=== PATIENT | female | born 2000 | race Hispanic/Latino ===

== ENCOUNTER 2020-11-15 13:51 | Emergency (ER) | payer OTHER, SELFPAY ==
[2020-11-15] VITALS (11 sets, daily range): BP systolic 108–121; BP diastolic 56–66; PULSE 73–90; RESP 15–25; TEMP 36.9; O2SAT 72–100; BMI 25.7
[2020-11-15 15:05] LABS: COVID19 -Nasal RAPID Negative (Negative)
[2020-11-15 16:38] LABS: Add Manual Diff / Slide Review NO; Basophils Absolute Auto 0 /uL (0-100); Basophils Percent Auto 0.3 % (0-2); Eosinophils Absolute Auto 0 /uL (0-450); Eosinophils Percent Auto 0.5 % (2-4); Hematocrit 39.5 % (36-46); Hemoglobin 13.8 g/dL (12.0-16.0); Lymphocytes Absolute Auto 2000 /uL (1100-4500); Lymphocytes Percent Auto 20.8 % (25-40); Mean Corpuscular HGB Conc 34.9 % (30-36); Mean Corpuscular Hemoglobin 29.3 PG (26-34); Mean Corpuscular Volume 83.9 fL (80-100); Monocytes Absolute Auto 400 /uL (0-900); Monocytes Percent Auto 4.2 % (3-14); Neutrophils Absolute Auto 7000 /uL (1500-7000); Neutrophils Percent Auto 74.2 % (50-75); Platelet Count 251 X10^3/uL (150-400); Red Blood Cell Count 4.71 X10^6/uL (4.0-5.2); Red Cell Distribution Width 12.9 % (11.6-14.8); White Blood Cell Count 9.4 X10^3/uL (4.5-11.0)
[2020-11-15 16:46] LABS: Alanine Aminotransferase 13 IU/L (<35); Albumin 4.6 g/dL (3.5-5.0); Albumin Globulin Ratio 1.2 (1.0-2.8); Alkaline Phosphatase 47 U/L (38-126); Aspartate Aminotransferase 19 IU/L (14-36); BUN Creatinine Ratio 28.8 (6-22); Bilirubin Total 0.4 mg/dL (0.2-1.3); Blood Urea Nitrogen 15 mg/dL (7-17); Calcium 9.4 mg/dL (8.4-10.2); Carbon Dioxide 27 mmol/L (22-32); Chloride 104 mmol/L (98-107); Estimated Glomerular Filt Rate > 60.0 mL/min (>60); Globulin 3.7 g/dL (1.7-4.1); Glucose 111 mg/dL (70-100); HEMOLYSIS < 15 (0-50); Lipase 48 U/L (23-300); Potassium 3.8 mmol/L (3.4-5.1); Sodium 137 mmol/L (137-145); Total Protein 8.3 g/dL (6.3-8.2)
[2020-11-15] MEDS: SODIUM CHLORIDE 0.9% 1,000 ML 150 ML IV (16:59)
--- NOTE | 2020-11-15 17:02 | ED_ITS ---
HPI - Abdominal Pain General Chief Complaint: Abdominal Pain Stated Complaint: anxiety,stomach pain,difficulty breathing,headache Time Seen by Provider: 11/15/20 16:09 Source: patient Mode of arrival: Ambulatory Limitations: no limitations History of Present Illness HPI narrative: 19-year-old female nonsmoker with noncontributory medical history presents with variety of symptoms that started this morning upon waking. She's had a vague headache which seems to be worse with bright lights and loud noise. She denies blurred vision, trouible with speech, or other focal neurologic findings such as numbness, tingling or weakness. Additionally she has felt a bit nauseated in the absence of any vomiting. She has had no runny nose, sore throat, cough, chest pain. She mentioned earlier difficulty breathing but sta donnie that it was more when she felt anxious when she was trying to not vomit. She denies any exposure to persons known to have COVID. She denies any constipation or diarrhea. She denies dysuria, frequency or urgency. She denies any change in her medications or diet. MD complaint: other Onset (ago): hour(s) Associated symptoms: nausea Related Data Home Medications Medication Instructions Recorded Confirmed ascorbic acid (vitamin C) 250 mg 250 mg PO DAILY 10/11/20 10/11/20 chewable tablet bimatoprost 0.03 % drops with 1 applic TOPICAL BEDTIME 10/11/20 10/11/20 applicator, eyelash base vitamin#30 30 mg iron-10 cap PO 10/11/20 10/11/20 mg iron-folic acid 1 mg-omg3 capsule Allergies Allergy/AdvReac Type Severity Reaction Status Date / Time bee venom protein (honey bee) Allergy Severe Hives/throat Verified 11/15/20 14:27 swelling Review of Systems Constitutional Constitutional: Denies chills, Denies fatigue, Denies fever(s), Denies frequent falls, Denies lethargy, Reports poor appetite and Reports weakness Eyes Eyes: Denies change in vision, Denies eye discharge, Denies irritation and Denies loss of vision ENT Ears, Nose, Mouth, and Throat: Denies change in voice, Denies dizziness, Denies neck pain, Denies sore throat and Denies throat swelling Cardiovascular Cardiovascular: Denies chest pain, Denies irregular heart rhythm, Denies lightheadedness, Denies palpitations, Reports dyspnea, Denies dyspnea on exertion and Denies orthopnea Respiratory Respiratory: Denies cough, Reports dyspnea, Denies dyspnea on exertion and Denies wheezing Gastrointestinal Gastrointestinal: Denies abdominal pain, Denies change in bowel habits, Denies diarrhea, Reports nausea and Denies vomiting Musculoskeletal Musculoskeletal: Denies neck pain and Denies numbness Integumentary/Breasts Skin/Breast: Denies pruritus, Denies erythema, Denies rash and Denies wounds Neurologic Neurologic: Denies behavioral changes, Denies confusion, Denies dizziness, Denies frequent falls, Denies loss of vision, Denies numbness and Reports weakness Psychiatric Psychiatric: Reports anxiety, Denies behavioral changes, Denies confusion, Denies depression, Denies homicidal ideation and Denies suicidal ideation Endocrine Endocrine: Denies fatigue, Denies flushing and Denies palpitations Hematologic/Lymphatic Hematologic/Lymphatic: Denies easy bruising Allergic/Immunologic Allergic/Immunologic: Denies urticaria, Denies throat swelling and Denies wheezing Patient History Social History Smoking Status: Never smoker Smoking Status: Never smoker alcohol intake frequency: other Substance Use Type: does not use Exam Narrative Exam Narrative: GENERAL: [19] year old patient appears stated age. Well- nourished, well-developed patient, in mild distress. Very anxious HEAD: Atraumatic. Normocephalic. EYES: Pupils equal round and reactive. Extraocular motions intact. No scleral icterus. No injection or drainage. ENT: Nose without bleeding, purulent drainage. Throat without erythema, tonsillar hypertrophy or exudate. Airway patent. NECK: Trachea midline. Non tender CARDIOVASCULAR: Regular rate and rhythm without murmurs, gallops, or rubs. RESPIRATORY: Clear to auscultation. Breath sounds equal bilaterally. No wheezes, rales, or rhonchi. GASTROINTESTINAL: Abdomen soft, non-tender, nondistended. EXTREMITIES: No edema or joint tenderness. BACK: Nontender without deformity or crepitance. No flank tenderness. NEURO: AOx3. SKIN: No rash or erythema of visible areas Initial Vital Signs Initial Vital Signs: Vital Signs Temperature 98.4 F 11/15/20 14:27 Pulse Rate 79 11/15/20 14:27 Respiratory Rate 16 11/15/20 14:27 Blood Pressure 121/66 11/15/20 14:27 Pulse Oximetry 100 11/15/20 14:27 Course Orders Ordered: Discontinued Medications Sodium Chloride (Normal Saline 0.9%) 1,000 mls @ 150 mls/hr IV CONT KEENAN Last Infusion: 11/15/20 19:35 Dose: 0 mls/hr Documented by: Infusion: 11/15/20 18:41 Dose: 1,000 mls/hr Documented by: Admin: 11/15/20 16:59 Dose: 150 mls/hr Documented by: GADIEL Ketorolac Tromethamine (Ketorolac 60 Mg/2 Ml Vial) 15 mg IV NOW ONE Stop: 11/15/20 18:21 Last Admin: 11/15/20 18:30 Dose: 15 mg Documented by: GADIEL Metoclopramide HCl (Metoclopramide 10 Mg/2 Ml Inj) 10 mg IV NOW ONE Stop: 11/15/20 18:21 Last Admin: 11/15/20 18:29 Dose: 10 mg Documented by: GADIEL Vital Signs Vital signs: Vital Signs - 8 hr 11/15/20 19:59 Pulse Rate 83 Respiratory Rate 16 Blood Pressure 117/58 L Pulse Oximetry 98 MDM - Abdominal Pain Lab Data Result diagrams: 11/15/20 16:23 11/15/20 16:23 Labs: Lab Results 11/15/20 11/15/20 11/15/20 Range/Units 14:38 16:23 16:23 WBC 9.4 (4.5-11.0) X10^3/uL RBC 4.71 (4.0-5.2) X10^6/uL Hgb 13.8 (12.0-16.0) g/dL Hct 39.5 (36-46) % MCV 83.9 (80-100) fL MCH 29.3 (26-34) PG MCHC 34.9 (30-36) % RDW 12.9 (11.6-14.8) % Plt Count 251 (150-400) X10^3/uL Neut % (Auto) 74.2 (50-75) % Lymph % (Auto) 20.8 L (25-40) % [place] % (Auto) 4.2 (3-14) % Eos % (Auto) 0.5 L (2-4) % Baso % (Auto) 0.3 (0-2) % Neut # (Auto) 7000 (3648-9264) /uL Lymph # (Auto) 2000 (8291-7366) /uL [place] # (Auto) 400 (0-900) /uL Eos # (Auto) 0 (0-450) /uL Baso # (Auto) 0 (0-100) /uL Sodium 137 (137-145) mmol/L Potassium 3.8 (3.4-5.1) mmol/L Chloride 104 (98-107) mmol/L Carbon Dioxide 27 (22-32) mmol/L BUN 15 (7-17) mg/dL Creatinine 0.52 (0.52-1.04) mg/dL Estimated GFR > 60.0 (>60) mL/min BUN/Creatinine Ratio 28.8 H (6-22) Glucose 111 H (70-100) mg/dL Calcium 9.4 (8.4-10.2) mg/dL Total Bilirubin 0.4 (0.2-1.3) mg/dL AST 19 (14-36) IU/L ALT 13 (<35) IU/L Alkaline Phosphatase 47 (38-126) U/L Total Protein 8.3 H (6.3-8.2) g/dL Albumin 4.6 (3.5-5.0) g/dL Globulin 3.7 (1.7-4.1) g/dL Albumin/Globulin Ratio 1.2 (1.0-2.8) Lipase 48 (23-300) U/L COVID-19 PCR Negative (Negative) Point of care testing: Point of Care Testing Test Results Negative Urine Dip Bedside Urine Glucose Negative Bedside Urine Bilirubin - Negative Bedside Urine Ketone - Negative Urine Specific [place] 1.015 Bedside Urine Occult Blood - Negative Bedside Urine pH 8.5 Bedside Urine Protein - Negative Bedside Urine Urobilinogen - Negative Bedside Urine Nitrite - Negative Bedside Urine Leukocytes - Negative Esterase Discharge Plan Departure Patient Disposition: Home Clinical Impression: Headache Qualifiers: Headache type: unspecified Headache chronicity pattern: acute headache Intractability: not intractable Qualified Code(s): R51.9 - Headache, unspecified Instructions: DI for Headache Activity Restrictions/Additional Instructions: *You have been diagnosed with [ atypical migraine, very reassuring labs and response to medications ] *What to do: *Take medications as directed *Follow up with your primary care provider in 2-3 days, call for an appointment. Let them know you were seen in the Emergency Department and that we ask that you be seen in follow up *Return to ER if you should have any new, worsening or concerning symptoms Prescriptions: No Action PNV #[id number] 30 mg iron-10 mg iron-1 mg capsule PO RF: 0 bimatoprost [Latisse] 0.03 % drops with applicator 1 applic topical BEDTIME RF: 0 ascorbic acid (vitamin C) 250 mg tablet,chewable 250 mg PO DAILY RF: 0
[2020-11-15] MEDS: METOCLOPRAMIDE 10 MG/2 ML INJ IV (18:29)
[2020-11-15] MEDS: KETOROLAC 60 MG/2 ML VIAL 15 MG IV (18:30)
--- NOTE | 2020-11-15 18:41 | PC.NURSE ---
Fluid rate adjusted to 1000ml/hr per provider Gifford verbal order.
== END 2020-11-15 20:01 | disposition home or self-care (01) ==
PROVIDERS: Emergency Medicine; Emergency Provider Emergency Medicine
DX: R51.9 Headache, unspecified (principal); R10.9 Unspecified abdominal pain; Z20.828 Contact with and (suspected) exposure to other viral communicable diseases
CPT/HCPCS: 36415; 80053; 81003; 81025; 83690; 85025; 87635; 93005; 96361; 96374; 96375; 99283; 99284; J1885; J2765

== ENCOUNTER → 2021-02-07 15:38 | Outpatient (CLI) | payer OTHER, SELFPAY ==
[2021-02-07 16:25] LABS: Add Manual Diff / Slide Review NO; Basophils Absolute Auto 0 /uL (0-100); Basophils Percent Auto 0.4 % (0-2); Eosinophils Absolute Auto 100 /uL (0-450); Eosinophils Percent Auto 1.1 % (2-4); Hematocrit 38.2 % (36-46); Hemoglobin 13.4 g/dL (12.0-16.0); Lymphocytes Absolute Auto 2000 /uL (1100-4500); Lymphocytes Percent Auto 32.4 % (25-40); Mean Corpuscular HGB Conc 34.9 % (30-36); Mean Corpuscular Hemoglobin 29.2 PG (26-34); Mean Corpuscular Volume 83.7 fL (80-100); Monocytes Absolute Auto 300 /uL (0-900); Monocytes Percent Auto 5.6 % (3-14); Neutrophils Absolute Auto 3800 /uL (1500-7000); Neutrophils Percent Auto 60.5 % (50-75); Platelet Count 229 X10^3/uL (150-400); Red Blood Cell Count 4.57 X10^6/uL (4.0-5.2); Red Cell Distribution Width 12.6 % (11.6-14.8); White Blood Cell Count 6.2 X10^3/uL (4.5-11.0)
[2021-02-07 16:45] LABS: Erythrocyte Sedimentation Rate 5 MM/HR (0-20)
[2021-02-07 17:03] LABS: Alanine Aminotransferase 11 IU/L (<35); Albumin 4.6 g/dL (3.5-5.0); Albumin Globulin Ratio 1.6 (1.0-2.8); Alkaline Phosphatase 49 U/L (38-126); Aspartate Aminotransferase 19 IU/L (14-36); BUN Creatinine Ratio 20.6 (6-22); Bilirubin Total 0.3 mg/dL (0.2-1.3); Blood Urea Nitrogen 13 mg/dL (7-17); Calcium 9.9 mg/dL (8.4-10.2); Carbon Dioxide 30 mmol/L (22-32); Chloride 102 mmol/L (98-107); Estimated Glomerular Filt Rate > 60.0 mL/min (>60); Globulin 2.9 g/dL (1.7-4.1); Glucose 89 mg/dL (70-100); HEMOLYSIS < 15 (0-50); Lipase 68 U/L (23-300); Potassium 3.8 mmol/L (3.4-5.1); Sodium 138 mmol/L (137-145); Total Protein 7.5 g/dL (6.3-8.2)
[2021-02-07 17:04] LABS: C-Reactive Protein Quant < 0.5 mg/dL (<1.0)
[2021-02-07 17:49] LABS: Vitamin B12 Reflex MMA if <400 451 pg/mL (239-931)
[2021-02-09 19:18] LABS: ANA Screen, IFA Positive (.)
== END ==
PROVIDERS: PCP Family Medicine; Referring Provider Family Medicine; Visit Provider Family Medicine
DX: R20.2 Paresthesia of skin (principal); R10.12 Left upper quadrant pain; L50.3 Dermatographic urticaria
CPT/HCPCS: 36415; 80053; 82607; 83690; 85025; 85651; 86038; 86140

== ENCOUNTER 2021-02-17 13:10 | Emergency (ER) | payer OTHER, SELFPAY ==
[2021-02-17 13:17] VITALS: BP 126/74; PULSE 69; RESP 14; TEMP 36.7; O2SAT 100; BMI 26.3
--- NOTE | 2021-02-17 15:09 | ED.ABDPAIN ---
HPI - Abdominal Pain <PUNEET Pineda - Last Filed: 02/17/21 19:24> General Chief Complaint: Abdominal Pain Stated Complaint: abdominal pain, sent for a CT Time Seen by Provider: 02/17/21 14:24 Source: patient Mode of arrival: Ambulatory Limitations: no limitations History of Present Illness HPI narrative: This is a 20 year female, nonsmoker, who has past medical history significant for cholecystectomy in December last year presents to ED with chief complain of epigastric, left upper quadrant pain for last month and she relates her pain after eating. Patient reports she follows intermittent fasting for last 3 months for 16 hour period and eat from noon to 6 pm for weight control. Patient reports she had lost more than 100 lb over 1.5 year. Patient reports pain gets severe at times and 2 days ago she almost came in to ED but decided not to come in due to medical insurance issues. She reports she is tired and had enough of this pain. She frequently moans and groan due to pain. Patient describes pain as sharp and squeezing and rates as 5/10 but at this time pain is 1/10. Patient denies known food allergies. Patient eats variety food including vegetables and fruits. Frequently patient has soft BM and after she does bowl movement, pain subsides. She denie fever, chills, urinary symptoms. LMP on 01/28/2021. Patient is referred by [employer]ODUCT OWNER Sharon Agustin for imaging test, PCP Dr. Márquez. Patient initially declined labs or IV start. We had long discussion of complete workup and to get a CT of abdomen and pelvis exam, patient requires IV access for contrast administration and she agrees with blood test and IV access. Related Data Home Medications Medication Instructions Recorded Confirmed ascorbic acid (vitamin C) 250 mg 250 mg PO DAILY 10/11/20 02/07/21 chewable tablet bimatoprost 0.03 % drops with 1 applic TOPICAL BEDTIME 10/11/20 02/07/21 applicator, eyelash base vitamin#30 30 mg iron-10 cap PO 10/11/20 02/07/21 mg iron-folic acid 1 mg-omg3 capsule apple cider vinegar 300 mg tablet mg PO 12/02/20 02/07/21 Allergies Allergy/AdvReac Type Severity Reaction Status Date / Time bee venom protein (honey bee) Allergy Severe Hives/throat Verified 02/17/21 13:23 swelling Review of Systems <PUNEET Pineda - Last Filed: 02/17/21 19:24> Review of Systems Narrative: General: Denies fever, chills, fatigue, malaise, sweats. HEENT: Denies sinus pain, ear pain, sore throat, difficulty swallowing, dizziness. Respiratory: Denies dyspnea, cough, wheezing, hemoptysis, sputum. Cardiovascular: Denies chest pain, palpitations, orthopnea, edema. Gastrointestinal: See HPI : Denies dysuria, frequency, incontinence, hematuria, urinary retention. Musculoskeletal: Denies weakness, joint pain or bony pain. Skin: Denies rash, skin lesions, or other. Neurologic: Denies weakness, headache, numbness, change in speech, confusion, seizures, incoordination. Psychiatric: No concerning psychosocial issues. 12-point review of systems is negative except for those stated above. 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 Head: Normal cephalic, atraumatic. No scalp or temporal tenderness, palpable mass or rash. EYES: Pupils are equal, round, and reactive to light and accommodation. Extraocular muscles are intact bilaterally. There is no subconjunctival hemorrhage, exudate and sclera non-icteric. ENT: Hearing grossly intact. Airway patent. Neck: Trachea in midline. No JVD, non-tender without lymphadenopathy. No masses or thyroid megaly. Supple, non-tender and no meningeal signs. CARDIAC: Normal regular rate and rhythm without murmurs, gallops, or rubs. No chest wall tenderness. No peripheral edema, cyanosis or pallor. Capillary refill is less than 2 seconds. RESPIRATORY: Lungs are clear to auscultate bilaterally. No cough, wheezes, rales, or rhonchi. No stridor, respiratory distress, increase work of breathing, or accessary muscle used. ABD: Abdomen soft and non-distended. No guarding or rebound tenderness to palpate. Tender to palpate in left upper and bilateral abdomen. Bowel sounds are normal in all 4 quadrants. There is no palpable masses or organomegaly. EXT: Full painless ROM of all extremities with no loss of sensation, strength, effusion or edema. SKIN: Warm, dry, normal color for patient. No erythema, lesions or rash over visible areas. BACK: Nontender without deformity or crepitance. No flank tenderness. NEUROLOGICAL: Alert and oriented to place, time and person. Sensation and motor function intact bilaterally. No facial droops, dysphasia. PSYCHIATRIC: Good judgement and reason, without hallucinations. Patient is not suicidal. Initial Vital Signs Initial Vital Signs: Vital Signs Temperature 98.1 F 02/17/21 13:17 Pulse Rate 69 02/17/21 13:17 Respiratory Rate 14 02/17/21 13:17 Blood Pressure 126/74 02/17/21 13:17 Pulse Oximetry 100 02/17/21 13:17 <Obdulia Williamson MD - Last Filed: 02/20/21 05:23> Initial Vital Signs Initial Vital Signs: Vital Signs Temperature 98.1 F 02/17/21 13:17 Pulse Rate 69 02/17/21 13:17 Respiratory Rate 14 02/17/21 13:17 Blood Pressure 126/74 02/17/21 13:17 Pulse Oximetry 100 02/17/21 13:17 Scores <PUNEET Pineda - Last Filed: 02/17/21 19:24> GCS Graham coma scale eye opening: Spontaneous Graham coma scale verbal response: Orientated Graham coma scale motor response: Obey commands [place] coma scale total score: 15 qSOFA Altered Mental Status (GCS <15): No Respiratory rate greater than/equal to 22: No Systolic blood pressure less than or equal to 100: No qSOFA Total: 0 0-1 Not High Risk 1-3 High risk Course <PUNEET Pineda - Last Filed: 02/17/21 19:24> Orders Ordered: Discontinued Medications Acetaminophen (Acetaminophen Susp 650 Mg/20.3 Ml Udc) 650 mg PO NOW ONE Stop: 02/17/21 17:04 Last Admin: 02/17/21 17:19 Dose: 650 mg Documented by: KBROTEM Sodium Chloride (Normal Saline 0.9%) 1,000 mls @ 150 mls/hr IV CONT KEENAN Last Infusion: 02/17/21 17:39 Dose: 0 mls/hr Documented by: Admin: 02/17/21 15:32 Dose: 150 mls/hr Documented by: SHERRILL Pantoprazole Sodium (Pantoprazole 40 Mg Vial) 40 mg IV NOW ONE Stop: 02/17/21 14:56 Last Admin: 02/17/21 15:32 Dose: 40 mg Documented by: SHERRILL Reevaluation(s) Reevaluation #1: Patient reports abdominal pain resolved at this time but has headache likely from crying. Medicating patient with elix Tylenol since patient is not able to tolerate pills. Waiting for CT of abdomen/pelvis results Time: 17:05 Vital Signs Vital signs: Vital Signs - 8 hr 02/17/21 13:17 02/17/21 16:19 02/17/21 16:34 Temperature 98.1 F Pulse Rate 69 86 91 H Respiratory Rate 14 Blood Pressure 126/74 Pulse Oximetry 100 100 100 02/17/21 17:00 02/17/21 17:39 Temperature Pulse Rate 80 87 Respiratory Rate Blood Pressure 106/59 L Pulse Oximetry 97 98 <Obdulia Williamson MD - Last Filed: 02/20/21 05:23> Orders Ordered: Discontinued Medications Acetaminophen (Acetaminophen Susp 650 Mg/20.3 Ml Udc) 650 mg PO NOW ONE Stop: 02/17/21 17:04 Last Admin: 02/17/21 17:19 Dose: 650 mg Documented by: KBROTEM Sodium Chloride (Normal Saline 0.9%) 1,000 mls @ 150 mls/hr IV CONT KEENAN Last Infusion: 02/17/21 17:39 Dose: 0 mls/hr Documented by: Admin: 02/17/21 15:32 Dose: 150 mls/hr Documented by: SHERRILL Pantoprazole Sodium (Pantoprazole 40 Mg Vial) 40 mg IV NOW ONE Stop: 02/17/21 14:56 Last Admin: 02/17/21 15:32 Dose: 40 mg Documented by: SHERRILL Vital Signs Vital signs: Vital Signs - 8 hr 02/17/21 13:17 02/17/21 16:19 02/17/21 16:34 Temperature 98.1 F Pulse Rate 69 86 91 H Respiratory Rate 14 Blood Pressure 126/74 Pulse Oximetry 100 100 100 02/17/21 17:00 02/17/21 17:39 Temperature Pulse Rate 80 87 Respiratory Rate Blood Pressure 106/59 L Pulse Oximetry 97 98 MDM - Abdominal Pain <Silvano PUNEET [place] - Last Filed: 02/17/21 19:24> Differential Diagnosis Differential diagnosis: Likely other (common bile duct stone, Gastritis, gastric ulcer, IBS) Medical Records Attestation: I reviewed the patient's medical records. Lab Data Attestation: I reviewed the patient's lab results. Result diagrams: 02/17/21 15:10 02/17/21 15:10 Labs: Lab Results 02/17/21 02/17/21 02/17/21 Range/Units 15:10 15:10 15:10 WBC 7.8 (4.5-11.0) X10^3/uL RBC 4.90 (4.0-5.2) X10^6/uL Hgb 14.3 (12.0-16.0) g/dL Hct 41.4 (36-46) % MCV 84.5 (80-100) fL MCH 29.2 (26-34) PG MCHC 34.5 (30-36) % RDW 13.0 (11.6-14.8) % Plt Count 200 (150-400) X10^3/uL Neut % (Auto) 64.7 (50-75) % Lymph % (Auto) 29.9 (25-40) % Citrus % (Auto) 4.3 (3-14) % Eos % (Auto) 0.7 L (2-4) % Baso % (Auto) 0.4 (0-2) % Neut # (Auto) 5000 (8082-5564) /uL Lymph # (Auto) 2300 (4318-5667) /uL Citrus # (Auto) 300 (0-900) /uL Eos # (Auto) 100 (0-450) /uL Baso # (Auto) 0 (0-100) /uL Sodium 140 (137-145) mmol/L Potassium 4.0 (3.4-5.1) mmol/L Chloride 105 (98-107) mmol/L Carbon Dioxide 26 (22-32) mmol/L BUN 16 (7-17) mg/dL Creatinine 0.51 L (0.52-1.04) mg/dL Estimated GFR > 60.0 (>60) mL/min BUN/Creatinine Ratio 31.4 H (6-22) Glucose 86 (70-100) mg/dL Lactate 1.0 (0.7-2.1) mmol/L Calcium 9.9 (8.4-10.2) mg/dL Magnesium (1.6-2.3) mg/dL Total Bilirubin 0.5 (0.2-1.3) mg/dL AST 27 (14-36) IU/L ALT 13 (<35) IU/L Alkaline Phosphatase 43 (38-126) U/L Total Protein 7.8 (6.3-8.2) g/dL Albumin 4.6 (3.5-5.0) g/dL Globulin 3.2 (1.7-4.1) g/dL Albumin/Globulin Ratio 1.4 (1.0-2.8) Lipase 56 (23-300) U/L 03/25/21 Range/Units 15:10 WBC (4.5-11.0) X10^3/uL RBC (4.0-5.2) X10^6/uL Hgb (12.0-16.0) g/dL Hct (36-46) % MCV (80-100) fL MCH (26-34) PG MCHC (30-36) % RDW (11.6-14.8) % Plt Count (150-400) X10^3/uL Neut % (Auto) (50-75) % Lymph % (Auto) (25-40) % Citrus % (Auto) (3-14) % Eos % (Auto) (2-4) % Baso % (Auto) (0-2) % Neut # (Auto) (8482-3472) /uL Lymph # (Auto) (7138-7450) /uL Citrus # (Auto) (0-900) /uL Eos # (Auto) (0-450) /uL Baso # (Auto) (0-100) /uL Sodium (137-145) mmol/L Potassium (3.4-5.1) mmol/L Chloride (98-107) mmol/L Carbon Dioxide (22-32) mmol/L BUN (7-17) mg/dL Creatinine (0.52-1.04) mg/dL Estimated GFR (>60) mL/min BUN/Creatinine Ratio (6-22) Glucose (70-100) mg/dL Lactate (0.7-2.1) mmol/L Calcium (8.4-10.2) mg/dL Magnesium 1.9 (1.6-2.3) mg/dL Total Bilirubin (0.2-1.3) mg/dL AST (14-36) IU/L ALT (<35) IU/L Alkaline Phosphatase (38-126) U/L Total Protein (6.3-8.2) g/dL Albumin (3.5-5.0) g/dL Globulin (1.7-4.1) g/dL Albumin/Globulin Ratio (1.0-2.8) Lipase (23-300) U/L Point of care testing: Point of Care Testing Test Results Negative Urine Dip Bedside Urine Glucose Negative Bedside Urine Bilirubin - Negative Bedside Urine Ketone + 15 Urine Specific [place] 1.030 Bedside Urine Occult Blood - Negative Bedside Urine pH 6.0 Bedside Urine Protein - Negative Bedside Urine Urobilinogen - Negative Bedside Urine Nitrite - Negative Bedside Urine Leukocytes - Negative Esterase Imaging Data CT scan - abdomen/pelvis: Radiologist's Impression: [address] [id number] Scan ReportSigned Patient: Ho Pitts [facility]#: [id number]: 2000Acct:[id number]/Sex: 20 / FDate of Service: 02/17/21Loc: EDAccession Number: [id number] Procedure: CT abdomen pelvis w con Ordering Provider: Silvano [place] PROCEDURE: CT ABDOMEN PELVIS W CON INDICATIONS: abdomen pain, nausea, hx cholecystectomy TECHNIQUE: After the administration of intravenous contrast, 5 mm thick sections acquired from the diaphragm to the symphysis. 5 mm coronal and sagittal reformats were acquired. For radiation dose reduction, the following was used: automated exposure control, adjustment of mA and/or kV according to patient size. COMPARISON: None. FINDINGS: Image quality: Excellent. ABDOMEN: Lung bases: Lung bases are clear. Heart size is normal. Solid organs: Liver is normal in size and enhancement. Gallbladder has been removed. Biliary system is non dilated. Pancreas enhances normally. Spleen is normal in size and enhancement. No adrenal nodules. Kidneys demonstrate normal size and enhancement, without hydronephrosis. Peritoneum and bowel: Appendix is nondilated. Bowel loops demonstrate normal wall thickness and caliber. No free fluid or air. Nodes and vessels: No retroperitoneal or mesenteric adenopathy by size criteria. Aorta and inferior vena cava are normal in size. Miscellaneous: No ventral hernias. PELVIS: There are bilateral peripherally enhancing ovarian lesions which presumably represent hemorrhagic cysts. A moderate volume of intermediate density fluid in the pelvis may represent hemorrhage related to rupture of 1 or more of these cysts. The uterus is unremarkable. Urinary bladder is normal. No threshold enlarged pelvic or inguinal lymph node. IMPRESSION: Bilateral hemorrhagic ovarian cysts with moderate volume intermediate density free fluid likely representing rupture of 1 or more of these cysts. This is a potential source of the patient's pain. Dictated by: Geovany Sierra M.D. on 02/17/2021 at 16:50 Approved by: Geovany Sierra M.D. on 02/17/2021 at 17:02 [facility] Narrative Medical decision making narrative: This is a 20 year female presents to ED with chief complain of ongoing upper abdominal pain after she is eating and low abdominal pain and pressure. She was evaluated at PCPs office today by MARKO Agustin for acute appointment and referred to ED for further evaluation. Patient had cholecystectomy about a year ago. She does prolonged intermittent fasting up to 18 hours or months good result with weight loss. Patient is afebrile and nontoxic appearing. Patient initially declined IV access or blood test but after long discussion for complete workup for abdominal pain, she agrees to the procedure with labs and IV access. Physical exam tender to palpate in bilateral upper abdomen worse in left-sided epigastric region with low abdominal pain to palpate. Urine test was negative for infection and urine test. Lab tests are assuring. No leukocytosis or elevated lactate. Chemistry test is unremarkable but slightly elevated BUN/creatinine ratio of 31.4 indicating possible dehydration. With patient had abdominal pain in upper and lower abdomen, decided CT test of abdomen and pelvis which was done. Results shows normal gallbladder, biliary system, pancreas, spleen. No indications for appy. Bilateral hemorrhagic ovarian cysts with moderate volume in intermediate density free fluid likely presenting rupture of 1 or more of these cysts. Patient's history concern for gastric ulcer and patient was medicated with Protonix IV in ED. findings shared with patient and spouse at bedside and advised shorten daily duration for intermittent fasting and avoid fatty, spicy, and acidic food and to take [id number] omeprazole and or Pepcid for symptoms management. Patient advised to follow-up with primary care physician for further evaluation. Strict return precautions discussed with patient and she verbalized understanding in agreement with the treatment plan. Patient in initially emotional and tearful however, patient smiles and appreciative care before Leaving ED. <Obdulia Williamson MD - Last Filed: 02/20/21 05:23> Lab Data Labs: Lab Results 02/17/21 02/17/21 02/17/21 Range/Units 15:10 15:10 15:10 WBC 7.8 (4.5-11.0) X10^3/uL RBC 4.90 (4.0-5.2) X10^6/uL Hgb 14.3 (12.0-16.0) g/dL Hct 41.4 (36-46) % MCV 84.5 (80-100) fL MCH 29.2 (26-34) PG MCHC 34.5 (30-36) % RDW 13.0 (11.6-14.8) % Plt Count 200 (150-400) X10^3/uL Neut % (Auto) 64.7 (50-75) % Lymph % (Auto) 29.9 (25-40) % Citrus % (Auto) 4.3 (3-14) % Eos % (Auto) 0.7 L (2-4) % Baso % (Auto) 0.4 (0-2) % Neut # (Auto) 5000 (3230-0431) /uL Lymph # (Auto) 2300 (3098-5185) /uL [place]rus # (Auto) 300 (0-900) /uL Eos # (Auto) 100 (0-450) /uL Baso # (Auto) 0 (0-100) /uL Sodium 140 (137-145) mmol/L Potassium 4.0 (3.4-5.1) mmol/L Chloride 105 (98-107) mmol/L Carbon Dioxide 26 (22-32) mmol/L BUN 16 (7-17) mg/dL Creatinine 0.51 L (0.52-1.04) mg/dL Estimated GFR > 60.0 (>60) mL/min BUN/Creatinine Ratio 31.4 H (6-22) Glucose 86 (70-100) mg/dL Lactate 1.0 (0.7-2.1) mmol/L Calcium 9.9 (8.4-10.2) mg/dL Magnesium (1.6-2.3) mg/dL Total Bilirubin 0.5 (0.2-1.3) mg/dL AST 27 (14-36) IU/L ALT 13 (<35) IU/L Alkaline Phosphatase 43 (38-126) U/L Total Protein 7.8 (6.3-8.2) g/dL Albumin 4.6 (3.5-5.0) g/dL Globulin 3.2 (1.7-4.1) g/dL Albumin/Globulin Ratio 1.4 (1.0-2.8) Lipase 56 (23-300) U/L 03/25/21 Range/Units 15:10 WBC (4.5-11.0) X10^3/uL RBC (4.0-5.2) X10^6/uL Hgb (12.0-16.0) g/dL Hct (36-46) % MCV (80-100) fL MCH (26-34) PG MCHC (30-36) % RDW (11.6-14.8) % Plt Count (150-400) X10^3/uL Neut % (Auto) (50-75) % Lymph % (Auto) (25-40) % Citrus % (Auto) (3-14) % Eos % (Auto) (2-4) % Baso % (Auto) (0-2) % Neut # (Auto) (6415-8174) /uL Lymph # (Auto) (6423-4682) /uL Citrus # (Auto) (0-900) /uL Eos # (Auto) (0-450) /uL Baso # (Auto) (0-100) /uL Sodium (137-145) mmol/L Potassium (3.4-5.1) mmol/L Chloride (98-107) mmol/L Carbon Dioxide (22-32) mmol/L BUN (7-17) mg/dL Creatinine (0.52-1.04) mg/dL Estimated GFR (>60) mL/min BUN/Creatinine Ratio (6-22) Glucose (70-100) mg/dL Lactate (0.7-2.1) mmol/L Calcium (8.4-10.2) mg/dL Magnesium 1.9 (1.6-2.3) mg/dL Total Bilirubin (0.2-1.3) mg/dL AST (14-36) IU/L ALT (<35) IU/L Alkaline Phosphatase (38-126) U/L Total Protein (6.3-8.2) g/dL Albumin (3.5-5.0) g/dL Globulin (1.7-4.1) g/dL Albumin/Globulin Ratio (1.0-2.8) Lipase (23-300) U/L Point of care testing: Point of Care Testing Test Results Negative Urine Dip Bedside Urine Glucose Negative Bedside Urine Bilirubin - Negative Bedside Urine Ketone + 15 Urine Specific [place] 1.030 Bedside Urine Occult Blood - Negative Bedside Urine pH 6.0 Bedside Urine Protein - Negative Bedside Urine Urobilinogen - Negative Bedside Urine Nitrite - Negative Bedside Urine Leukocytes - Negative Esterase Discharge Plan Departure Patient Disposition: Home Clinical Impression: Ovarian cyst rupture Abdominal pain Qualifiers: Abdominal location: unspecified location Qualified Code(s): R10.9 - Unspecified abdominal pain Gastric ulcer Qualifiers: Gastric ulcer chronicity: unspecified ulcer chronicity Gastric ulcer complication status: unspecified whether hemorrhage or perforation present Qualified Code(s): K25.9 - Gastric ulcer, unspecified as acute or chronic, without hemorrhage or perforation Instructions: DI for Ovarian Cyst, DI for Abdominal Pain-Adult, DI for Gastric Ulcer Activity Restrictions/Additional Instructions: You have been diagnosed with [upper and lower abdominal pain. Labs are assuring. No indications for UTI. test. Abdominal/pelvis CT test result impression of bilateral hemorrhagic ovarian cyst likely ruptured. No other acute findings in gallbladder, pancreas, spleen, kidneys. According to her history, concerns for gastric ulcer.]. What to do: *Take your medications as directed. Please take [id number] Pepcid or omeprazole for next couple of weeks see if this helps with her symptoms. Please decrease intermittent fasting From 16 hours to 12-14 hours and eat small amount bland diet. Hydrate adequately. *Follow up with your primary care provider in 2-3 days, call for an appointment. Let them know you were seen in the ED and that we asked you to be seen in follow up. *Return to ED if you have any new, worsening, or concerning symptoms, such as [chest pain, breathing difficulty, lightheadedness, worsening pain, fever or any acute concerns]. Prescriptions: No Action PNV #[id number] 30 mg iron-10 mg iron-1 mg capsule PO RF: 0 bimatoprost [Latisse] 0.03 % drops with applicator 1 applic topical BEDTIME RF: 0 ascorbic acid (vitamin C) 250 mg tablet,chewable 250 mg PO DAILY RF: 0 apple cider vinegar 300 mg tablet PO RF: 0 Referrals: Jaya Márquez MD [Primary Care Provider] - <Obdulia Williamson MD - Last Filed: 02/20/21 05:23> Cosign ED Attending Cosignature Attestation: I was immediately available in the department for consultation throughout this patient's visit. I agree with documentation as above. Obdulia Williamson MD
[2021-02-17 15:29] LABS: Add Manual Diff / Slide Review NO; Basophils Absolute Auto 0 /uL (0-100); Basophils Percent Auto 0.4 % (0-2); Eosinophils Absolute Auto 100 /uL (0-450); Eosinophils Percent Auto 0.7 % (2-4); Hematocrit 41.4 % (36-46); Hemoglobin 14.3 g/dL (12.0-16.0); Lymphocytes Absolute Auto 2300 /uL (1100-4500); Lymphocytes Percent Auto 29.9 % (25-40); Mean Corpuscular HGB Conc 34.5 % (30-36); Mean Corpuscular Hemoglobin 29.2 PG (26-34); Mean Corpuscular Volume 84.5 fL (80-100); Monocytes Absolute Auto 300 /uL (0-900); Monocytes Percent Auto 4.3 % (3-14); Neutrophils Absolute Auto 5000 /uL (1500-7000); Neutrophils Percent Auto 64.7 % (50-75); Platelet Count 200 X10^3/uL (150-400); White Blood Cell Count 7.8 X10^3/uL (4.5-11.0)
[2021-02-17] MEDS: SODIUM CHLORIDE 0.9% 1,000 ML 150 ML IV (15:32)
[2021-02-17] MEDS: PANTOPRAZOLE 40 MG VIAL IV (15:32)
[2021-02-17 15:43] LABS: Alanine Aminotransferase 13 IU/L (<35); Albumin 4.6 g/dL (3.5-5.0); Albumin Globulin Ratio 1.4 (1.0-2.8); Alkaline Phosphatase 43 U/L (38-126); Aspartate Aminotransferase 27 IU/L (14-36); BUN Creatinine Ratio 31.4 (6-22); Bilirubin Total 0.5 mg/dL (0.2-1.3); Blood Urea Nitrogen 16 mg/dL (7-17); Calcium 9.9 mg/dL (8.4-10.2); Carbon Dioxide 26 mmol/L (22-32); Chloride 105 mmol/L (98-107); Estimated Glomerular Filt Rate > 60.0 mL/min (>60); Globulin 3.2 g/dL (1.7-4.1); Glucose 86 mg/dL (70-100); HEMOLYSIS 39 (0-50); Lipase 56 U/L (23-300); Sodium 140 mmol/L (137-145); Total Protein 7.8 g/dL (6.3-8.2)
[2021-02-17 15:44] LABS: Magnesium 1.9 mg/dL (1.6-2.3)
--- NOTE | 2021-02-17 16:07 | DI.CT.S_ITS ---
PROCEDURE: CT ABDOMEN PELVIS W CON INDICATIONS: abdomen pain, nausea, hx cholecystectomy TECHNIQUE: After the administration of intravenous contrast, 5 mm thick sections acquired from the diaphragm to the symphysis. 5 mm coronal and sagittal reformats were acquired. For radiation dose reduction, the following was used: automated exposure control, adjustment of mA and/or kV according to patient size. COMPARISON: None. FINDINGS: Image quality: Excellent. ABDOMEN: Lung bases: Lung bases are clear. Heart size is normal. Solid organs: Liver is normal in size and enhancement. Gallbladder has been removed. Biliary system is non dilated. Pancreas enhances normally. Spleen is normal in size and enhancement. No adrenal nodules. Kidneys demonstrate normal size and enhancement, without hydronephrosis. Peritoneum and bowel: Appendix is nondilated. Bowel loops demonstrate normal wall thickness and caliber. No free fluid or air. Nodes and vessels: No retroperitoneal or mesenteric adenopathy by size criteria. Aorta and inferior vena cava are normal in size. Miscellaneous: No ventral hernias. PELVIS: There are bilateral peripherally enhancing ovarian lesions which presumably represent hemorrhagic cysts. A moderate volume of intermediate density fluid in the pelvis may represent hemorrhage related to rupture of 1 or more of these cysts. The uterus is unremarkable. Urinary bladder is normal. No threshold enlarged pelvic or inguinal lymph node. IMPRESSION: Bilateral hemorrhagic ovarian cysts with moderate volume intermediate density free fluid likely representing rupture of 1 or more of these cysts. This is a potential source of the patient's pain. Dictated by: Geovany Sierra M.D. on 02/17/2021 at 16:50 Approved by: Geovany Sierra M.D. on 02/17/2021 at 17:02
[2021-02-17 16:19] VITALS: PULSE 86; O2SAT 100
[2021-02-17 16:34] VITALS: PULSE 91; O2SAT 100
[2021-02-17 17:00] VITALS: PULSE 80; O2SAT 97
[2021-02-17] MEDS: ACETAMINOPHEN SUSP 650 MG/20.3 ML UDC PO (17:19)
[2021-02-17 17:39] VITALS: BP 106/59; PULSE 87; O2SAT 98
== END 2021-02-17 17:41 | disposition home or self-care (01) ==
PROVIDERS: Emergency Provider Nurse Practitioner Family; PCP Family Medicine
DX: K25.9 Gastric ulcer, unspecified as acute or chronic, without hemorrhage or perforation (principal); N83.202 Unspecified ovarian cyst, left side; N83.201 Unspecified ovarian cyst, right side
CPT/HCPCS: 36415; 74177; 80053; 81003; 81025; 83605; 83690; 83735; 85025; 96361; 96374; 99284; C9113

== ENCOUNTER → 2021-03-23 10:16 | Outpatient (CLI) | payer OTHER, SELFPAY ==
--- NOTE | 2021-03-23 10:23 | DIET.PN ---
Dietary Progress Note Assessment: 20y F attending nutrition visit for help with her disordered eating pattern and desire for further weight loss. Pt had emergency cholecystectomy last December which spurred a change in her dietary pattern. Pt started losing weight because she could not eat well and decided to use the experience to become healthier. HT: 5'2 WT: 143# would like to get to 130# UBW: 180#s BMI: 26.2 Eating Hx: Pt grew up in [facility] with four siblings, she is second oldest. Her parents when she was young and kids primarily lived c her mom who was veterinary hospital shift lead nurse. Pt reports being food insecure as a child and mostly ate frozen meals, rice, pasta. Pt was a big kid but didn't really worry about her weight until a few years ago. For the past year pt has been intermittent fasting either 12 to 18 hours per day depending on how she feels. She also eats a very clean diet and relates to orthorexic type behaviors. Pt avoids eggs and most dairy and at this time is eating a few snacks during the day but no big meals or one meal in a day. Pt often feels shaky and has strong, painful hunger pains but frequently tries to stay busy to ignore them. When pt feels she overeats or eats poorly she gets in cycles of being self-critical and self shaming. While pt is happy with her weight loss, she reports suffering with negative self talk. 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 Usual Day: wakes early and takes dogs out 2k steps takes about 2hr with playtime cleans house or stays busy until noon when she eats first food zucchini and chicken It is difficult to get further details about the foods she eats secondary to her feeling hesitant and ashamed. Labs: positive SINDHU, pt may work with rhumatologist when she moves. 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 Interventions: 1. Introduced pt to hunger scale. Even in the context of IF pt can use this tool to become more aware of her hunger and fullness and to learn to honor them. Educated pt on hunger scale and to honor herself to eat when a 3 and stop when an 8. This may mean pt reevaluates IF or adjusts timing. 2. Introduced pt to balanced plate eating so meals and snacks are 1/4 pro, 1/4 cho, and 1/2 colorful f/v. 3. Encouraged pt to follow nutrition advice 80% of the time at best to avoid being overly strict. 4. Introduced pt to cardiometabolic food plan at 1200 kcal level. Pt requested food plan, educated pt on this plan which is flexible related to actual food items but amounts and variety are listed. 5. Introduced pt to RA food pyramid since she had a positive SINDHU screen. This pyramid will assist her in eating to reduce inflammation and joint pain. Monitoring/Evaluations: f/u in 4w to assess progress and problem solve barriers.
== END ==
PROVIDERS: PCP Family Medicine; Referring Provider Family Medicine; Visit Provider Family Medicine
DX: F50.9 Eating disorder, unspecified (principal)
CPT/HCPCS: 97802